=== PATIENT | female | born 2000 | race Caucasian/White ===

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

== ENCOUNTER → 2023-05-03 | Outpatient (CLI) | payer OTHER ==
[~2023-05-03] MED LIST changes: +MIRE1IUD IU; +MONT-5 PO; -SING10TA32 PO
== END ==
LOC: M WHC 09:16
PROVIDERS: ATTEND Advanced Practice Midwife
DX: O32.1XX0 Maternal care for breech presentation, not applicable or unspecified (principal); Z3A.19 19 weeks gestation of pregnancy

== ENCOUNTER → 2023-05-12 | Outpatient (REF) | payer OTHER, BC, MEDICAID ==
[2023-05-12 15:03] LABS: HEMATOCRIT 36.6 % (36.0-47.0); HEMOGLOBIN 12.4 g/dl (12.0-15.5); MEAN CORPUSCULAR HGB CONC 33.9 g/dl (32.0-36.5); MEAN CORPUSCULAR VOLUME 94.6 fl (80.0-96.0); PLATELET COUNT, AUTOMATED 266 10^3/uL (150-450); RED BLOOD COUNT 3.87 10^6/uL (4.00-5.40); WHITE BLOOD COUNT 7.8 10^3/uL (4.0-10.0)
[2023-05-12 15:58] LABS: HIV 1&2 SCREEN NEGATIVE (NEGATIVE)
[2023-05-12 16:01] LABS: GC DNA AMPLIFICATION NEGATIVE (NEGATIVE)
[2023-05-12 16:07] LABS: HEPATITIS C VIRUS ABY INDEX 0.13 INDEX (<0.8)
== END ==
LOC: M LABDRAWP 13:28
PROVIDERS: ATTEND Advanced Practice Midwife
DX: Z34.02 Encounter for supervision of normal first pregnancy, second trimester (principal)

== ENCOUNTER → 2023-05-20 | Outpatient (CLI) | payer BC, MEDICAID, OTHER | LOC: M WHC 14:32 | PROVIDERS: ATTEND Obstetrics & Gynecology | DX: Z36.2 Encounter for other antenatal screening follow-up (principal) ==

== ENCOUNTER → 2023-07-05 | Outpatient (CLI) | payer BC, MEDICAID, OTHER ==
[2023-07-05 16:26] LABS: HEMATOCRIT 35.3 % (36.0-47.0); MEAN CORPUSCULAR HEMOGLOBIN 32.3 pg (27.0-33.0); MEAN CORPUSCULAR VOLUME 94.9 fl (80.0-96.0); PLATELET COUNT, AUTOMATED 317 10^3/uL (150-450); RED BLOOD COUNT 3.72 10^6/uL (4.00-5.40); WHITE BLOOD COUNT 9.3 10^3/uL (4.0-10.0)
[2023-07-05 18:39] LABS: GC DNA AMPLIFICATION NEGATIVE (NEGATIVE)
== END ==
LOC: M PLALAB 11:22
PROVIDERS: ATTEND Advanced Practice Midwife
DX: Z34.02 Encounter for supervision of normal first pregnancy, second trimester (principal)

== ENCOUNTER → 2023-09-01 | Outpatient (REF) | payer OTHER, MEDICAID | LOC: M SFHCWAGY 10:01 | PROVIDERS: ATTEND Advanced Practice Midwife | DX: Z34.93 Encounter for supervision of normal pregnancy, unspecified, third trimester (principal) ==

== ENCOUNTER → 2023-11-25 | Outpatient (REF) | payer BC, MEDICAID, OTHER ==
[~2023-11-25] MED LIST changes: +IBUP80TA PO
== END ==
LOC: M SFHCWAGY 17:05
PROVIDERS: ATTEND Advanced Practice Midwife
DX: R33.9 Retention of urine, unspecified (principal); R10.2 Pelvic and perineal pain

== ENCOUNTER → 2024-07-13 | Outpatient (REF) | payer BC, MEDICAID ==
[2024-07-13 19:28] LABS: Trichomonas vaginalis (AMP) NOT DETECTED (NEGATIVE)
[2024-07-13 19:52] LABS: GC DNA AMPLIFICATION NEGATIVE (NEGATIVE)
[2024-07-18 15:03] LABS: HPV APTIMA Not Detected (Not Detected)
== END ==
LOC: M PLALAB 15:50
PROVIDERS: ATTEND Advanced Practice Midwife
DX: Z12.4 Encounter for screening for malignant neoplasm of cervix (principal); Z11.3 Encounter for screening for infections with a predominantly sexual mode of transmission; R87.610 Atypical squamous cells of undetermined significance on cytologic smear of cervix (ASC-US)
CPT/HCPCS: 87624; 87661; 87810; 87850; G0123

== ENCOUNTER → 2025-08-29 | Outpatient (REF) | payer BC, MEDICAID ==
[~2025-08-29] MED LIST changes: +PROZ10CA11 PO; -PROZ10CA7 PO
== END ==
LOC: M SFHCWAGY 13:02
PROVIDERS: ATTEND Physician Assistant
DX: N76.6 Ulceration of vulva (principal)